=== PATIENT | male | born 1965 | race Caucasian/White ===

== ENCOUNTER 2020-02-02 14:06 | Emergency (ER) | payer OTHER ==
--- NOTE | 2020-02-02 15:57 | ER ---
Nurse's Notes [facility] Name: Odilon Bain Age: 54 yrs Sex: Male : 1965 Arrival Date: 02/02/2020 Time: 14:09 Bed 5 Private MD: Diagnosis: Nondisplaced fracture of distal phalanx of left lesser toe(s);Toenail Avulsion Presentation: 02/01 14:40 Chief complaint: Patient states: 1st and 2nd toe on left foot got run over by a piece iw of machinery. Coronavirus screen: Proceed with normal triage. Patient denies a cough. Patient denies shortness of breath or difficulty breathing. Patient denies measured and/or subjective temperature greater than 100.4F prior to today's visit. Patient denies travel on a cruise ship or to a country the [facility] currently lists as an affected area. Patient denies contact with known and/or suspected case of COVID-19. Ebola Screen: Patient negative for fever greater than or equal to 101.5 degrees Fahrenheit, and additional compatible Ebola Virus Disease symptoms Patient denies exposure to infectious person. Patient denies travel to an Ebola-affected area in the 21 days before illness onset. No symptoms or risks identified at this time. Initial Sepsis Screen: Does the patient meet any 2 criteria? No. Patient's initial sepsis screen is negative. Does the patient have a suspected source of infection? No. Patient's initial sepsis screen is negative. Risk Assessment: Do you want to hurt yourself or someone else? Patient reports no desire to harm self or others. Onset of symptoms was February 02, 2020. 14:40 Method Of Arrival: Wheelchair iw 14:40 Acuity: LINDSAY 4 iw Triage Assessment: 15:00 General: Appears in no apparent distress. uncomfortable, Behavior is calm, cooperative, vc appropriate for age. 15:00 Musculoskeletal: Circulation, motion, and sensation intact. Injury Description: Crush vc injury sustained to left first toe and left second toe. 16:15 Pain:. vc - Immunization history:: Adult Immunizations up to date. - Family history:: not pertinent. - Social history:: Smoking status: unknown. - Hospitalizations: : No recent hospitalization is reported. Screenin:00 Abuse screen: Denies threats or abuse. Nutritional screening: No deficits noted. vc Tuberculosis screening: No symptoms or risk factors identified. Fall Risk None identified. Assessment: 15:10 General: Appears in no apparent distress. uncomfortable, Behavior is calm, cooperative, vc appropriate for age. Pain: Complains of pain in left second toe and left first toe Pain does not radiate. Pain began suddenly. Neuro: Level of Consciousness is awake, alert, obeys commands, Oriented to person, place, time, situation, Appropriate for age. Cardiovascular: Capillary refill Patient's skin is warm and dry. Respiratory: Airway is patent Respiratory effort is even, unlabored, Respiratory pattern is regular, symmetrical. GI: No signs and/or symptoms were reported involving the gastrointestinal system. : No signs and/or symptoms were reported regarding the genitourinary system. Derm: Skin is intact, Skin temperature is warm. Musculoskeletal:. 15:10 Derm: Wound noted left second toe and left first toe. vc ED Course: 14:09 Patient arrived in ED. fj1 14:34 Jewel Meraz MD is Attending Physician. rn 14:41 Triage completed. iw 15:00 Arm band placed on. vc 15:00 Allergy band placed. Bed in low position. Call light in reach. vc 15:07 XRAY Foot LEFT 3 View In Process Unspecified. EDMS 16:00 Wound care: Cleaned wound to left foot with normal saline and chlorhexidine scrub. 3 Dressed with triple antibiotic and Kerlix. 16:00 No provider procedures requiring assistance completed. Patient did not have IV access vc during this emergency room visit. 16:14 Randi George, RN is Primary Nurse. vc Administered Medications: No medications were administered Outcome: 15:57 Discharge ordered by MD. rn 16:14 Patient left the ED. vc 16:14 Discharged to home ambulatory, with family. vc 16:14 Condition: good 16:14 Discharge instructions given to patient, Instructed on discharge instructions, follow up and referral plans. Demonstrated understanding of instructions, follow-up care. Signatures: Dispatcher [employer] EDMD Sofía Chavez RN RN iw Nieto, Roman, MD MD rn Herrera, Deanna [facility] Randi George RN RN vc James, Frank 1 Corrections: (The following items were deleted from the chart) 16:23 16:15 General: Appears in no apparent distress. uncomfortable, Behavior is calm, vc cooperative, appropriate for age, vc
--- NOTE | 2020-02-02 15:57 | EDPHYS ---
Physician Documentation [facility] Name: Odilon Bain Age: 54 yrs Sex: Male : 1965 Arrival Date: 02/02/2020 Time: 14:09 Bed 5 Private MD: ED Physician Jewel Meraz HPI: 02/01 14:39 This 54 yrs old Male presents to ER via Unassigned with complaints of Foot rn Injury, Toe Injury. 14:39 The patient presents with a crush injury, from a heavy object. The complaints affect rn the left foot. Onset: The symptoms/episode began/occurred today. Modifying factors: The symptoms are alleviated by nothing, the symptoms are aggravated by movement. Severity of symptoms: At their worst the symptoms were mild, in the emergency department the symptoms are unchanged. The patient has not experienced similar symptoms in the past. Reports foot got stuck on track, rolled over with rubber wheel skid steer, does not feel broken. tetanus UTD, reports pain only to 1st/2nd toes. . - Immunization history:: Adult Immunizations up to date. - Family history:: not pertinent. - Social history:: Smoking status: unknown. - Hospitalizations: : No recent hospitalization is reported. ROS: 14:39 Constitutional: Negative for fever, chills, and weight loss, MS/Extremity: + left foot rn 1st/2nd toe pain Neuro: Negative for weakness, numbness, tingling Exam: 14:39 Constitutional: This is a well developed, well nourished patient who is awake, alert, rn and in no acute distress. MS/ Extremity: Pulses equal, no cyanosis. Neurovascular intact. + left foot, 1st/2nd toes with dorsal abrasions and possible proximal nail injuries. + dry blood, no obvious lacerations. Plantar surface of foot and webspace without open wounds/injury. MDM: 14:34 Patient medically screened. rn 15:55 Differential diagnosis: fracture, sprain. Data reviewed: vital signs, nurses notes, rn radiologic studies, plain films, and as a result, I will discharge patient. Counseling: I had a detailed discussion with the patient and/or guardian regarding: the historical points, exam findings, and any diagnostic results supporting the discharge/admit diagnosis, radiology results, the need for outpatient follow up, to return to the emergency department if symptoms worsen or persist or if there are any questions or concerns that arise at home. Response to treatment: the patient's symptoms have mildly improved after treatment, and as a result, I will discharge patient. Special discussion: I discussed with the patient/guardian in detail that at this point there is no indication for admission to the hospital. It is understood, however, that if the symptoms persist or worsen the patient needs to return immediately for re-evaluation. ED course: + fracture distal 2nd toe, + injury to both nailbeds, nothing to suture, will leave nails in to promote regrowth. . 02/01 14:39 Order name: XRAY Foot LEFT 3 View rn Administered Medications: No medications were administered Disposition: 02/02/20 15:57 Discharged to Home. Impression: Nondisplaced fracture of distal phalanx of left lesser toe(s), Toenail Avulsion. - Condition is Stable. - Discharge Instructions: Nail Avulsion, Nail Bed Injury, Toe Fracture. - Medication Reconciliation Form, Thank You Letter, Antibiotic Education, Prescription Opioid Use form. - Follow up: Private Physician; When: As needed; Reason: Recheck today's complaints, Re-evaluation by your physician. - Problem is new. - Symptoms have improved. Signatures: Dispatcher [employer] EDMS Jewel Meraz MD MD rn Calcote, Vanessa, RN RN vc Corrections: (The following items were deleted from the chart) 15:57 15:57 02/02/2020 15:57 Discharged to Home. Impression: Nondisplaced fracture of distal rn phalanx of left lesser toe(s). Condition is Stable. Forms are Medication Reconciliation Form, Thank You Letter, Antibiotic Education, Prescription Opioid Use. Follow up: Private Physician; When: As needed; Reason: Recheck today's complaints, Re-evaluation by your physician. Problem is new. Symptoms have improved. rn 16:14 15:57 02/02/2020 15:57 Discharged to Home. Impression: Nondisplaced fracture of distal vc phalanx of left lesser toe(s); Toenail Avulsion. Condition is Stable. Forms are Medication Reconciliation Form, Thank You Letter, Antibiotic Education, Prescription Opioid Use. Follow up: Private Physician; When: As needed; Reason: Recheck today's complaints, Re-evaluation by your physician. Problem is new. Symptoms have improved. rn
--- NOTE | 2020-02-02 17:04 | RAD REPORT ---
EXAM DESCRIPTION: RAD - Foot Left 3 View - 02/02/2020 3:59 pm CLINICAL HISTORY: PAIN, blunt force trauma to the first and second toes COMPARISON: No comparisons FINDINGS: Second toe distal phalanx tuft fracture is present without significant distraction or angu lation deformity. Patient probably has a distal phalanx first toe tuft fracture as well. Again, no di straction or angulation. No other acute bone or joint finding identifiable. No air or foreign body in the soft tissues. IMPRESSION: Left first and second toe distal phalanx tuft fractures.
== END 2020-02-02 16:14 | disposition home or self-care (01) ==
LOC: ER 14:06
DX: S92.535A Nondisplaced fracture of distal phalanx of left lesser toe(s), initial encounter for closed fracture (principal); S91.205A Unspecified open wound of left lesser toe(s) with damage to nail, initial encounter; X58.XXXA Exposure to other specified factors, initial encounter; Y93.9 Activity, unspecified; Y92.89 Other specified places as the place of occurrence of the external cause
CPT/HCPCS: 99283